=== PATIENT | male | born 1970 | race Caucasian/White ===

== ENCOUNTER 2016-10-24 12:28 | Emergency (ER) | payer SELFPAY ==
[~2016-10-24] VITALS: Ht 170.2 cm; Wt 102.7 kg
[2016-10-24 12:42] VITALS: BP 142/92
--- NOTE | 2016-10-24 15:14 | NUR ---
PATIENT LEFT WITHOUT BEING SEEN BY DR. LAGUNAS. NO FURTHER CARE PROVIDED FOR PATIENT.
== END 2016-10-24 15:14 | disposition left against medical advice (07) ==
LOC: MED 12:28
DX: R10.12 Left upper quadrant pain (principal); Z53.21 Procedure and treatment not carried out due to patient leaving prior to being seen by health care provider